=== PATIENT | female | born 1975 | race Caucasian/White ===

== ENCOUNTER → 2016-10-24 | Outpatient (CLI) | payer BC | END | disposition home or self-care (01) | LOC: LAB.O 08:34 | PROVIDERS: ATTEND Physician Assistant | DX: E04.1 Nontoxic single thyroid nodule (principal); L73.9 Follicular disorder, unspecified; R73.01 Impaired fasting glucose ==

== ENCOUNTER → 2016-12-21 | Outpatient (CLI) | payer BC ==
--- NOTE | 2016-12-22 10:45 | MRI ---
EXAM DESCRIPTION: Cervical Spine CLINICAL HISTORY: RADICULOPATHY COMPARISON: None Available. TECHNIQUE: MRI of the cervical spine is performed according to our usual protocol. FINDINGS: A shunt is status post fusion of C5-6. Alternatively normal cervical lordosis. AP alignment is unremarkable. The dens is unremarkable. Craniocervical and atlantoaxial junctions are normal. C2-3: Mild right neuroforaminal narrowing. The spinal canal and left neuroforamen are unremarkable. C3-4: Moderate right neuroforaminal narrowing. The spinal canal and left neuroforamen are unremarkable. C4-5: Right paracentral disc protrusion with cord contact. Midline diameter spinal canal is narrowed 8 mm. There is mild bilateral neuroforaminal narrowing. C5-6: Fusion. The neuroforamen are likely patent. The spinal canal is poorly evaluated due to metallic artifact. C6-7: Focal posterior disc protrusion measuring 3 mm in the AP dimension. No cord contact. The midline diameter spinal canal is adequate at 11 mm. Bilateral neuroforamen are unremarkable. C7-T1: Mild 2 mm broad-based posterior disc protrusion. No spinal canal or neuroforaminal narrowing. IMPRESSION: 1. Today's exam demonstrates mild degenerative change above the fusion at C4-5. At this level there is spinal canal narrowing in which the AP diameter canal measures 8 mm along with subtle cord contact. Negative for myelomalacia. 2. Multilevel neuroforaminal narrowing as described above. Electronically signed by: Raymon Daly MD 12/22/2016 10:45 AM CDT
== END ==
LOC: MRI 12:48
PROVIDERS: ATTEND Psychiatry & Neurology Neurology
DX: M50.13 Cervical disc disorder with radiculopathy, cervicothoracic region (principal); M51.16 Intervertebral disc disorders with radiculopathy, lumbar region

== ENCOUNTER → 2017-01-16 | Outpatient (CLI) | payer BC ==
--- NOTE | 2017-01-16 17:32 | MAM ---
History: Well woman exam. Date of exam: 01/16/2017 Services provided: Bilateral full field digital screening mammography. CAD, the images were reviewed with R2 computer aided detection. FINDINGS: Glandular tissue is scattered glandular pattern with increased mammographic density. Bilateral intact subglandular implants. Comparison with 2016 exam. No dominant mass, architectural distortion or clustered microcalcification. Stable mammographic distribution. IMPRESSION: Benign exam Recommendation: Routine annual mammography BIRAD CATEGORY: 2 BENIGN Electronically signed by: Emilee Hemphill MD 01/16/2017 5:31 PM CDT Workstation: [id number]
== END | disposition home or self-care (01) ==
LOC: MAMMO 09:40
PROVIDERS: ATTEND Family Medicine
DX: Z12.31 Encounter for screening mammogram for malignant neoplasm of breast (principal)

== ENCOUNTER → 2017-04-26 | Outpatient (CLI) | payer BC | LOC: LAB.O 08:10 | PROVIDERS: ATTEND Physician Assistant | DX: E04.1 Nontoxic single thyroid nodule (principal); L73.9 Follicular disorder, unspecified; R73.01 Impaired fasting glucose ==

== ENCOUNTER → 2017-10-20 | Outpatient (CLI) | payer BC | LOC: LAB.O 17:22 | PROVIDERS: ATTEND Nurse Practitioner Family | DX: R00.2 Palpitations (principal) ==

== ENCOUNTER → 2017-10-24 | Outpatient (CLI) | payer BC | LOC: LAB.O 07:56 | PROVIDERS: ATTEND Physician Assistant | DX: E04.1 Nontoxic single thyroid nodule (principal); L73.9 Follicular disorder, unspecified; R73.01 Impaired fasting glucose ==

== ENCOUNTER → 2018-02-12 | Outpatient (CLI) | payer BC ==
--- NOTE | 2018-02-15 11:17 | MAM ---
EXAM DESCRIPTION: 3D Screening BILATERAL : Digital Mammography. CLINICAL HISTORY: 42 years Female SCREENING . No complaints. No family history breast cancer. Childbirth. Premenopausal. No HRT. Bilateral breast augmentation. COMPARISON: Bilateral digital screening 01/16/2017. No prior reports available. Reports from prior examinations also reviewed. Report from prior examination also reviewed. TECHNIQUE: Bilateral CC and MLO projection full-field images, with Carlos Implant Displacement 3-D tomosynthesis digital mammographic technique. CAD not utilized. Bilateral 2-D digital full-field images, MLO and CC projections, non-displaced, with CAD. FINDINGS: The breast parenchymal density pattern is: Heterogeneously dense breast tissue, which may obscure small masses. No skin thickening or nipple retraction. Skin calcifications anterior and bilateral. And skin calcifications around the right nipple. Left axillary and intramammary lymph nodes. Focal asymmetry in the 330 clock position of the anterior third of the left breast approximately 4 cm from the nipple. Bilateral subpectoral saline implants present. Capsule intact where seen.. No new focal, stellate mass or density, focal asymmetry , and no suspicious microcalcifications right breast. IMPRESSION: BI-RADS CATEGORY: 0 - INCOMPLETE- Need additional imaging evaluation. FOLLOW-UP: Recall for additional imaging: Bilateral digital full field LM 3-D tomosynthesis images with routine and Carlos technique.. Targeted left breast ultrasound. Written communication concerning the IMPRESSION and Follow-up, will be mailed to the patient and referring health care provider. Electronically signed by: Davie Sheets MD 02/15/2018 11:15 AM CDT
== END ==
LOC: MAMMO 09:48
PROVIDERS: ATTEND Family Medicine
DX: Z12.31 Encounter for screening mammogram for malignant neoplasm of breast (principal)

== ENCOUNTER → 2018-02-21 | Outpatient (CLI) | payer BC ==
--- NOTE | 2018-02-22 08:00 | CT ---
EXAM DESCRIPTION: Abdomen/Pelvis w/Contrast CLINICAL HISTORY: NAUSEA WITH VOMITING COMPARISON: None. TECHNIQUE: Postcontrast CT images of the abdomen and pelvis are obtained using standard imaging protocol. Positive oral contrast was utilized. This exam was performed according to our departmental dose-optimization program, which includes automated exposure control, adjustment of the mA and/or kV according to patient size and/or use of iterative reconstruction technique . FINDINGS: Visualized lung bases show no acute findings. Bilateral breast implants are incidentally noted. The liver, spleen, pancreas, adrenal glands, and gallbladder are unremarkable. Mild atherosclerotic disease is seen. Kidneys show no nephrolithiasis. No obvious ureteral calcification or obstruction is seen. The mid to distal ureters are not well visualized. Urinary bladder is contracted but fills with contrast on delayed images. There is a T-shaped IUD in the endometrial canal that appears in good positioning. There is a fluid attenuation cyst in the left adnexa measuring 4.7 x 3.9 cm. Right ovary is poorly visualized but unremarkable. There are surgical clips in the region of the cecum with nonvisualization of the appendix suggesting previous appendectomy. Stomach is contracted and poorly evaluated. No small bowel obstruction or bowel wall thickening is seen. Contrast is noted throughout the colon. No significant diverticular disease or wall thickening is seen in the colon. No pathologic lymphadenopathy, free intraperitoneal air, or abnormal drainable fluid collections are seen. The osseous structures show mild degenerative changes of the spine. Nonaggressive-appearing probable sclerotic bone island measures 4 mm in the left iliac bone. Several sclerotic nonaggressive-appearing probable bone islands are seen in the pubic symphyseal region measuring up to 10 mm. IMPRESSION: 4.7 cm probably benign left ovarian cyst Recommend follow-up pelvic US in 6-12 weeks. Reference: J Am Armand Radiol 2013;10:[id number] No acute findings on CT of the abdomen and pelvis. Evidence of previous appendectomy seen. IUD appears in good positioning in the uterus. Electronically signed by: Sohan Mcdaniel MD 02/22/2018 7:59 AM CDT
== END ==
LOC: CT 09:17
DX: R11.2 Nausea with vomiting, unspecified (principal); R63.4 Abnormal weight loss; K21.9 Gastro-esophageal reflux disease without esophagitis; E11.9 Type 2 diabetes mellitus without complications; E06.9 Thyroiditis, unspecified; Z68.26 Body mass index [BMI] 26.0-26.9, adult; Z80.0 Family history of malignant neoplasm of digestive organs

== ENCOUNTER → 2018-02-28 | Outpatient (CLI) | payer BC | LOC: LAB.O 09:36 | PROVIDERS: ATTEND Physician Assistant | DX: E05.00 Thyrotoxicosis with diffuse goiter without thyrotoxic crisis or storm (principal); E78.5 Hyperlipidemia, unspecified; R73.01 Impaired fasting glucose ==

== ENCOUNTER → 2018-06-18 | Outpatient (CLI) | payer BC | LOC: LAB.O 10:09 | PROVIDERS: ATTEND Physician Assistant | DX: E05.00 Thyrotoxicosis with diffuse goiter without thyrotoxic crisis or storm (principal) ==

== ENCOUNTER → 2019-03-27 | Outpatient (CLI) | payer BC | LOC: GMAM 10:51 | PROVIDERS: ATTEND Family Medicine | DX: E06.3 Autoimmune thyroiditis (principal); R73.09 Other abnormal glucose ==

== ENCOUNTER → 2019-04-24 | Outpatient (CLI) | payer BC ==
--- NOTE | 2019-04-25 10:25 | MRI ---
EXAM DESCRIPTION: Cervical Spine: MRI. CLINICAL HISTORY: 44 years Female OTHER CERVICAL DISC DEGENERATION COMPARISON: Cervical spine MRI scan December 21, 2016. TECHNIQUE: Multiplanar, high-field MRI, multiple sequences, non-contrast Cervical spine. FINDINGS: Prominent metallic susceptibility artifact from prior fusion at the C5-C6 level almost totally obscuring these vertebra. The artifact is distorting the size of the canal and foramina but the foramina appear moderately narrowed. Distortion of the cord and the canal is well. C4-C5: Desiccation of the disc and minimal disc space narrowing. Posterior midline protrusion of the disc abutting the central cord. Borderline central canal stenosis. Mild bilateral neural foraminal narrowing. Stable since the prior study. C7-T1: Minimal disc space loss. Normal signal in the disc. Tiny posterior midline bulge. Facets are negative and bilateral neural foramina are patent. No change since the prior study. T1-T2: Normal signal in the disc and disc space maintained. Anterior disc bulging but not posterior. Posterior elements unremarkable. Canal and bilateral neural foramina are patent. Stable since the prior study. Normal signal in the remaining discs with no bulging. Disc spaces preserved. Canal and neural foramina are patent. Facet joints unremarkable. Spinal alignment normal lordosis reduced. No cord compression or cord edema. Atlantoaxial joint unremarkable.. Base of the cerebellar tonsils is at the level of the foramen magnum. Paravertebral soft tissues unremarkable. Vertebral bodies are not compressed at any level. Normal marrow signal in the remaining vertebral bodies and the posterior elements. IMPRESSION: 1. Prominent metallic susceptibility artifact at the C5-C6 level from prior fusion. Unable to evaluate canal. Bilateral neural foramina appear patent. No change from the prior study. Consider CT scan cervical spine. 2. Posterior C4-C5 disc small protrusion and borderline mild central canal stenosis. Bilateral neural foraminal narrowing. Stable since the prior study. 3. C7-T1 and T1-T2 disc, canal, and neural foramina with no significant findings. Stable since the prior study. Electronically signed by: Davie Sheets MD 04/25/2019 10:24 AM CDT
== END ==
LOC: MRI 08:03
PROVIDERS: ATTEND Family Medicine
DX: M50.30 Other cervical disc degeneration, unspecified cervical region (principal); M50.221 Other cervical disc displacement at C4-C5 level; M48.02 Spinal stenosis, cervical region; Z98.1 Arthrodesis status

== ENCOUNTER → 2019-05-10 | Outpatient (CLI) | payer BC ==
--- NOTE | 2019-05-14 12:14 | MAM ---
EXAM DESCRIPTION: 3D Screening BILATERAL : Digital Mammography. CLINICAL HISTORY: 44 years Female SCREENING . No complaints. No personal or family history of breast cancer. Menarche age 14. Late childbirth age 37. Premenopausal. No HRT. Bilateral breast augmentation. Lifetime risk of developing breast cancer (Tyrer-Cuzick model)(%): 13.4. COMPARISON: Diagnostic digital breast tomosynthesis 12 February 2018 with Carlos implant technique. Bilateral diagnostic digital breast tomosynthesis 19 March 2018 with diagnostic left breast ultrasound on the same visit. TECHNIQUE: Bilateral CC and MLO projection full-field images, with Carlos Implant Displacement digital tomosynthesis mammographic technique. Bilateral 2-D digital full-field images, MLO and CC projections, non-displaced. Bilateral digital 2-D full-field MLO images, nondisplaced. CAD not available for tomosynthesis or 2-D images. FINDINGS: The breast parenchymal density pattern is: Heterogeneously dense breast tissue, which may obscure small masses. No skin thickening or nipple retraction. Bilateral axillary lymph nodes. Bilateral solitary microcalcifications, mostly retroareolar. Bilateral saline implants in a subpectoral location. Implants capsules intact where seen. No new focal, stellate mass or density, focal asymmetry , and no suspicious microcalcifications bilaterally. Stable mammograms compared to prior study. IMPRESSION: Benign exam. BIRAD CATEGORY: 2 BENIGN FINDINGS. RECOMMENDATIONS: FOLLOW UP: Routine digital bilateral mammographic screening, one year interval from April 2019. Written communication explaining the IMPRESSION and follow-up, will be mailed to the patient and referring health care provider. According to the [employer], yearly mammograms are recommended starting at age 40 and continuing as long as a woman is in good health. Any breast change noted on a breast self-exam should be reported promptly to the patient's healthcare provider. Breast MRI is recommended for women with an approximately 20-25% or greater lifetime risk of breast cancer, including women with a strong family history of breast or ovarian cancer and women who have been treated for Hodgkin's disease. A negative mammographic report should not delay tissue diagnosis in patients with significant clinical history or physical findings. Extremely dense breast tissue limits the sensitivity of digital mammography. Electronically signed by: Davie Sheets MD 05/14/2019 12:12 PM CDT
== END ==
LOC: MAMMO 08:09
PROVIDERS: ATTEND Family Medicine
DX: Z12.31 Encounter for screening mammogram for malignant neoplasm of breast (principal)

== ENCOUNTER → 2020-06-19 | Outpatient (CLI) | payer BC ==
--- NOTE | 2020-06-19 16:40 | MAM ---
EXAM DESCRIPTION: 3D Screening BILATERAL : Digital Mammography. CLINICAL HISTORY: 45 years Female SCREEN . No complaints. No personal or family history of breast cancer. Menarche age 14. Childbirth age 37. Premenopausal. No HRT. Bilateral breast augmentation. Lifetime risk of developing breast cancer (Tyrer-Cuzick model)(%): 13.2. COMPARISON: Bilateral screening digital breast tomosynthesis with Carlos implant displacement technique April 2019 and January 2018 bilateral diagnostic digital breast tomosynthesis with Carlos implant displacement technique and diagnostic directed breast ultrasound February 2018. TECHNIQUE: Bilateral CC and MLO projection full-field images, with Carlos Implant Displacement digital tomosynthesis mammographic technique. Bilateral 2-D digital full-field images, MLO and CC projections, non-displaced. Bilateral digital 2-D full-field MLO images. CAD available for 2-D images. FINDINGS: The breast parenchymal density pattern is: Heterogeneously dense breast tissue, which may obscure small masses. No skin thickening or nipple retraction. Axillary nodes. Solitary microcalcifications. Anterior right breast skin calcifications. Subpectoral bilateral saline implants. Capsules appear intact where seen. Minimal folding left implant. No new focal, stellate mass or density, focal asymmetry , and no suspicious microcalcifications bilaterally. Stable mammograms compared to prior study. IMPRESSION: Benign exam. BIRAD CATEGORY: 2 BENIGN FINDINGS. RECOMMENDATIONS: FOLLOW UP: Routine digital bilateral mammographic screening, one year interval from May 2020. Written communication explaining the IMPRESSION and follow-up, will be mailed to the patient and referring health care provider. According to the [employer], yearly mammograms are recommended starting at age 40 and continuing as long as a woman is in good health. Any breast change noted on a breast self-exam should be reported promptly to the patient's healthcare provider. Breast MRI is recommended for women with an approximately 20-25% or greater lifetime risk of breast cancer, including women with a strong family history of breast or ovarian cancer and women who have been treated for Hodgkin's disease. A negative mammographic report should not delay tissue diagnosis in patients with significant clinical history or physical findings. Extremely dense breast tissue limits the sensitivity of digital mammography. Electronically signed by: Davie Sheets MD 06/19/2020 4:38 PM NUTRIENT MANAGEMENT SPECIALIST
== END ==
LOC: MAMMO 09:00
PROVIDERS: ATTEND Nurse Practitioner Acute Care
DX: Z12.31 Encounter for screening mammogram for malignant neoplasm of breast (principal)